=== PATIENT | male | born 2000 | race Caucasian/White ===

== ENCOUNTER 2022-03-06 20:33 | Emergency (ER) | payer OTHER, BC | END 2022-03-06 22:00 | disposition home or self-care (01) | LOC: ERS 20:33 | DX: S00.01XA Abrasion of scalp, initial encounter (principal); W22.8XXA Striking against or struck by other objects, initial encounter; Y93.43 Activity, gymnastics; Y92.39 Other specified sports and athletic area as the place of occurrence of the external cause | CPT/HCPCS: 99283 ==